=== PATIENT | male | born 1950 | race Hispanic/Latino ===

== ENCOUNTER 2017-07-31 20:38 | Emergency (ER) | payer OTHER, MEDICARE, BC ==
[2017-07-31 21:23] LABS: #Basophils 0.1 thou/uL (0.0-0.2); #Eosinphils 0.1 thou/uL (0.0-0.7); #Lymphocytes 1.4 thou/uL (1.20-3.40); #Monocytes 0.5 thou/uL (0.11-0.59); #Neutrophils 3.9 thou/uL (1.40-6.50); %Basophils 0.9 % (0.0-1.0); %Lymphocytes 23.6 % (21.0-51.0); %Monocytes 7.9 % (0.0-10.0); %Neutrophils 65.6 % (42.0-75.0); Hemoglobin 14.6 g/dL (14.0-18.0); Mean Corpuscular Hemoglobin 32.6 pg (27.0-31.0); Mean Platelet Volume 8.4 fL (7.4-10.4); Platelet Count 184 thou/uL (130-400); RBC Distribution Width 12.4 % (11.5-14.5); Red Blood Cell (RBC) Count 4.49 mill/uL (4.70-6.10)
[2017-07-31 21:45] LABS: ALT (SGPT) 18 U/L (8-55); AST (SGOT) 19 U/L (5-34); Albumin 4.1 g/dL (3.4-4.8); Alkaline Phosphatase 109 U/L (40-150); Anion Gap 15 mmol/L (10-20); BUN (Urea Nitrogen) 13 mg/dL (8.4-25.7); Bilirubin, Total 0.8 mg/dL (0.2-1.2); Calc. Creatinine Clearance 0 mL/min (70-130); Calcium 10.3 mg/dL (7.8-10.44); Carbon Dioxide 22 mmol/L (23-31); Chloride 100 mmol/L (98-107); Estimated GFR-MDRD 78; Globulin 3.5 g/dL (2.4-3.5); Glucose 327 mg/dL (80-115); Potassium 4.1 mmol/L (3.5-5.1); Protein, Total 7.6 g/dL (5.8-8.1); Sodium 133 mmol/L (136-145)
--- NOTE | 2017-07-31 21:51 | RAD ---
RIGHT HAND: 07/31/17 Three views. HISTORY: Pain in hand. FINDINGS/IMPRESSION: There is a flexion deformity at the PIP joint of the fifth digit. There are degenerative changes at t he PIP joints. Mild degenerative change at the first MCP joint. No acute fracture identified. POS: [facility]
--- NOTE | 2017-07-31 21:53 | CT ---
CT CERVICAL SPINE: 07/31/17 Multiple axial tomograms obtained through the cervical spine with multiplanar reconstruction. HISTORY: Fall with injury to neck. Cervical vertebrae maintain height and alignment. No evidence of fracture identified. IMPRESSION: No evidence of fracture. POS: [facility]
--- NOTE | 2017-07-31 21:59 | CT ---
CT HEAD WITHOUT CONTRAST: 07/31/17 Multiple axial tomograms obtained through the head without IV enhancement. HISTORY: Fall with injury to head. Mild cortical volume loss. Moderate chronic ischemic white matter change. 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 No hemorrhage. No mass. No acute cortical infarct. Sinuses and masto ids are well aerated. IMPRESSION: There are chronic changes as described. No acute process. POS: [facility]
--- NOTE | 2017-07-31 22:21 | RAD ---
FIFTH FINGER RIGHT HAND: 07/31/17 HISTORY: Post reduction. FINDINGS/IMPRESSION: The flexion deformity at the PIP joint fifth finger has been reduced. There are degenerative changes at this PIP joint. There is evidence of tiny fracture fragment along the radial side of the proximal phalanx at this joint. There is also soft tissue calcification seen dorsally which may represent smal l fracture fragments. There is soft tissue swelling. POS: [facility]
--- NOTE | 2017-09-08 12:36 | EKG ---
Test Reason : SYCOPE Blood Pressure : / mmHG Vent. Rate : 063 BPM Atrial Rate : 063 BPM P-R Int : 214 ms QRS Dur : 100 ms QT Int : 430 ms P-R-T Axes : 051 -39 059 degrees QTc Int : 440 ms Sinus rhythm with 1st degree A-V block Left axis deviation Abnormal ECG Confirmed by ANGELA EL, PAUL ([id number]), map editor SARAH CADET ([id number]) on 09/08/2017 12:35:48 PM Referred By: KENDALL Confirmed By:PAUL MILLER MD
== END 2017-07-31 23:35 | disposition home or self-care (01) ==
LOC: ERS 20:38
DX: S09.90XA Unspecified injury of head, initial encounter (principal); S62.616A Displaced fracture of proximal phalanx of right little finger, initial encounter for closed fracture; S16.1XXA Strain of muscle, fascia and tendon at neck level, initial encounter; E11.22 Type 2 diabetes mellitus with diabetic chronic kidney disease; N18.6 End stage renal disease; W08.XXXA Fall from other furniture, initial encounter
CPT/HCPCS: 26742; 36415; 70450; 72125; 80053; 85025; 93005

== ENCOUNTER 2022-09-06 13:45 | Inpatient (IN) | payer MEDICARE, BC ==
[~2022-09-06 13:45] MED LIST: Iopamidol-370 76% 500 ML MDV (1 ML CHARGE) ONE
[2022-09-06] MEDS ORDERED: Cefepime 2 GM VIAL ONE (14:01)
[2022-09-06] MEDS ORDERED: Diltiazem 125 MG/25 ML SDV ONE ×2 (14:01→15:30)
[2022-09-06 14:20] LABS: #Lymphocytes 0.6 thou/uL (1.20-3.40); #Monocytes 0.5 thou/uL (0.11-0.59); #Neutrophils 3.8 thou/uL (1.40-6.50); %Basophils 0.1 % (0.0-1.0); %Lymphocytes 12.7 % (21.0-51.0); %Monocytes 10.5 % (0.0-10.0); %Neutrophils 76.7 % (42.0-75.0); Hemoglobin 14.2 g/dL (14.0-18.0); Mean Corpuscular Hemoglobin 31.7 pg (27.0-31.0); Platelet Count 138 10x3/uL (130-400); RBC Distribution Width 16.6 % (11.5-14.5); Red Blood Cell (RBC) Count 4.46 mill/uL (4.70-6.10)
[2022-09-06 14:21] LABS: Actual Bicarbonate (HCO3a) 21.6 mEq/L (22-28); Analyzer IN Cardio ER; Base Excess (BEa) -2.5 mEq/L (-2.0 to +3.0); CO2 Tension 35.6 mmHg (35.0-45.0); Calcium, Ionized (arterial) 1.27 mmol/L (1.12-1.30); Carboxyhemoglobin (COHb) 0.6 gm% (0.0-3.0); Hemoglobin (Hb) 14.4 g/dL (14.0-18.0); O2 Tension (PaO2), arterial 145.1 mmHg (> 70.0); Potassium - ABG Lab 4.26 mmol/L (3.70-5.30)
[2022-09-06 14:26] LABS: Puncture Site RRA
[2022-09-06] MEDS ORDERED: VANCOMYCIN 2 GRAM/500 ML BAG 2 GM in Premix Bag 1 BAG IVPB SCH (14:30)
[2022-09-06 14:35] LABS: INR-International Normal Ratio 1.5; PTT 26.9 sec (22.9-36.1); Prothrombin Time 18.4 sec (12.0-14.7)
[2022-09-06 15:12] LABS: SARS-CoV-2 NAA Rapid Test Not Detected (NotDetected)
[2022-09-06 15:28] LABS: Albumin 2.6 g/dL (3.4-4.8)
[2022-09-06 15:29] LABS: Chloride 114 mmol/L (98-107); Potassium 3.4 mmol/L (3.5-5.1); Sodium 145 mmol/L (136-145)
[2022-09-06 15:30] LABS: Calcium 7.8 mg/dL (7.8-10.44); Glucose 355 mg/dL (80-115)
[2022-09-06] MEDS ORDERED: Furosemide 40 MG/4 ML VIAL ONE ×2 (15:30→20:04)
[2022-09-06 15:31] LABS: Globulin 2.9 g/dL (2.4-3.5); Protein, Total 5.5 g/dL (5.8-8.1)
[2022-09-06 15:32] LABS: Anion Gap 19 mmol/L (10-20); Bilirubin, Total 1.1 mg/dL (0.2-1.2); Carbon Dioxide 15 mmol/L (23-31)
[2022-09-06 15:33] LABS: Alkaline Phosphatase 55 U/L (40-110)
[2022-09-06 15:34] LABS: Calc. Creatinine Clearance 0 mL/min (70-130); Estimated GFR 91
[2022-09-06 15:35] LABS: BUN (Urea Nitrogen) 15 mg/dL (8.4-25.7)
[2022-09-06 15:36] LABS: ALT (SGPT) 31 U/L (8-55); AST (SGOT) 53 U/L (5-34)
[2022-09-06 15:49] LABS: Acetaminophen Less than 10.0 mcg/mL (10.0-30.0); Alcohol Less than 10 mg/dL (Less than 10); Salicylate Less than 8.0 mg/dL (15.0-30.0)
[2022-09-06 16:04] LABS: Bacteria/HPF None Seen HPF (None Seen); Bilirubin 1+ (Negative); Blood, Urine Trace (Negative); Clarity Clear (Clear); Glucose, Urine (Dipstick) Greater than 1000 mg/dL (Negative); Ketone, Urine 40 mg/dL (Negative); Leukocyte Negative Leu/uL (Negative); Nitrite Negative (Negative); Protein, Urine (Dipstick) 100 mg/dL (Neg-Trace); RBC/HPF 0-3 HPF (0-3); Specific Gravity, Urine 1.027 (1.002-1.036); Squamous Epithelial None Seen HPF (0-3); WBC/HPF 0-3 HPF (0-3); pH, Urine 5.5 (5.0-9.0)
[2022-09-06 16:11] LABS: Amphetamine Not Detected (NotDetected); Barbiturates Screen Not Detected (NotDetected); Benzodiazepine Screen Not Detected (NotDetected); Cocaine Metabolite Screen Not Detected (NotDetected); Methadone Not Detected (NotDetected); Methamphetamine Not Detected (NotDetected); Opiate Screen Not Detected (NotDetected); Oxycodone Screen Not Detected (NotDetected); Phencyclidine (PCP) Not Detected (NotDetected); THC/Cannabinoid Screen Not Detected (NotDetected); Tricyclic Screen Not Detected (NotDetected)
[2022-09-06 16:16] LABS: CKMB 1.1 ng/mL (0-6.6)
[2022-09-06] MEDS ORDERED: Magnesium 2 GM/50 ML BAG (IN WATER) ONE (16:58)
[2022-09-06] MEDS ORDERED: Amiodarone 150 MG/3 ML VIAL ONE (16:58)
[2022-09-06] MEDS ORDERED: Senokot S 8.6-50 MG TAB PO PRN (17:49)
[2022-09-06] MEDS ORDERED: Acetaminophen 325 MG TAB PO PRN (17:49)
[2022-09-06] MEDS ORDERED: Guaifenesin DM 100-10/5 ML UDCUP PO PRN (17:49)
[2022-09-06] MEDS ORDERED: Ondansetron PF 4 MG/2 ML Vial IVP PRN (17:49)
[2022-09-06 18:32] LABS: Lactic Acid 4.5 mmol/L (0.5-2.2)
[2022-09-06] MEDS ORDERED: Dextrose 5 %-0.45 % NaCl 1,000 ML IV PRN (18:32)
[2022-09-06] MEDS ORDERED: Sodium Chloride 0.9% 1,000 ML IV PRN ×4 (18:32)
[2022-09-06] MEDS ORDERED: Electrolyte Replacement Protocol 1 EACH IVPB SCH (18:32)
[2022-09-06] MEDS ORDERED: NS 0.9% w/ 20 MEQ KCL 1,000 ML IV PRN ×2 (18:32)
[2022-09-06] MEDS ORDERED: D5 1/2 NS w/20 mEq KCL 1,000 ML IV PRN (18:32)
[2022-09-06] MEDS ORDERED: Dextrose 50% Abboject 50 ML SYRINGE SLOW IVP PRN (18:32)
[2022-09-06] MEDS ORDERED: Dextrose 5% in Water 1,000 ML IV PRN (18:34)
[2022-09-06] MEDS ORDERED: HumaLOG 300 UNITS/3 ML VIAL SC PRN (18:34)
[2022-09-06] MEDS ORDERED: Magnesium Sulfate 4 GM in Sodium Chloride 0.9% 250 ML 250 ML IVPB SCH (18:45)
[2022-09-06] MEDS ORDERED: Magnesium Sulfate In Water 4 GM in Premix Bag 1 BAG IVPB SCH (18:45)
[2022-09-06] MEDS ORDERED: HUMULIN R 100 UNITS in Sodium Chloride 0.9% 100 ML IVPB SCH (18:45)
[2022-09-06 20:07] LABS: Anion Gap 24 mmol/L (10-20); BUN (Urea Nitrogen) 18 mg/dL (8.4-25.7); Calc. Creatinine Clearance 0 mL/min (70-130); Carbon Dioxide 20 mmol/L (23-31); Chloride 104 mmol/L (98-107); Estimated GFR 51; Glucose 503 mg/dL (80-115); Potassium 4.2 mmol/L (3.5-5.1); Sodium 144 mmol/L (136-145)
[2022-09-06] MEDS ORDERED: Famotidine/PF 20 mg/2ml Vial SLOW IVP SCH (21:00)
[2022-09-06] MEDS ORDERED: Aspirin 300 MG Suppository PR SCH (21:15)
[2022-09-06] MEDS: Diltiazem HCl 125 MG, Admixture Fee 1 EACH in Sodium Chloride 0.9% 100 ML IVPB SCH (21:30)
[2022-09-06 21:38] LABS: Phosphorus 2.7 mg/dL (2.3-4.7)
[2022-09-06] MEDS ORDERED: Digoxin 0.5 MG/2 ML AMP SLOW IVP SCH ×2 (22:00→23:00)
[2022-09-06 22:40] VITALS: BMI 31.1
[2022-09-06] MEDS ORDERED: NOREPINEPHRINE 8 MG/250 ML-D5W 250 ML IVPB SCH (22:45)
[2022-09-06] MEDS: Amiodarone 450 MG in Dextrose 5% in Water 250 ML IVPB SCH (23:45)
[2022-09-06 23:48] LABS: Lactic Acid 3.9 mmol/L (0.5-2.2)
[2022-09-06 23:51] LABS: Anion Gap 18 mmol/L (10-20); BUN (Urea Nitrogen) 18 mg/dL (8.4-25.7); Calc. Creatinine Clearance 54 mL/min (70-130); Calcium 9.7 mg/dL (7.8-10.44); Carbon Dioxide 24 mmol/L (23-31); Chloride 104 mmol/L (98-107); Estimated GFR 49; Potassium 3.3 mmol/L (3.5-5.1); Sodium 143 mmol/L (136-145)
[2022-09-06 23:52] LABS: CK (CPK) 63 U/L (30-200); Magnesium 1.5 mg/dL (1.6-2.6)
[2022-09-06 23:59] LABS: Glucose 441 mg/dL (80-115); Troponin I 0.296 ng/mL (< 0.028)
[2022-09-07] MEDS ORDERED: NOREPINEPHRINE 8 MG/250 ML-D5W 250 ML IVPB SCH (00:35)
[2022-09-07] MEDS ORDERED: Magnesium 2 GM/50 ML(in water) 2 GM in Premix Bag 1 BAG IVPB SCH ×2 (00:45→06:00)
[2022-09-07] MEDS ORDERED: Cefepime 2 GM in Sodium Chloride 0.9% 100 ML IVPB SCH (02:00)
[2022-09-07] MEDS ORDERED: NPH, Human Insulin Isophane 300 UNIT/3 ML VIAL SC SCH (02:30)
[2022-09-07] MEDS: Potassium Chloride 20 MEQ in Premix Bag 1 BAG IVPB SCH ×2 (02:31→04:08)
[2022-09-07] MEDS ORDERED: Insulin NPH Human Isophane 100 UNIT/ML (10 ML VIAL) SC SCH (02:45)
[2022-09-07] MEDS: HumaLOG 300 UNITS/3 ML VIAL SC PRN ×4 (03:02→20:26)
[2022-09-07] MEDS ORDERED: Phenylephrine 40 MG in Sodium Chloride 0.9% 250 ML 250 ML IVPB SCH (03:15)
[2022-09-07] MEDS: Phenylephrine 40 MG/NS 250 ML 40 MG in Premix Bag 1 BAG IVPB SCH ×2 (04:08→12:22)
[2022-09-07 05:05] LABS: #Lymphocytes 0.6 thou/uL (1.20-3.40); #Monocytes 0.7 thou/uL (0.11-0.59); %Basophils 0.1 % (0.0-1.0); %Eosinophils 0.1 % (0.0-10.0); %Lymphocytes 7.6 % (21.0-51.0); %Neutrophils 82.1 % (42.0-75.0); Mean Corpuscular HGB CONC 30.9 g/dL (32.0-36.0); Mean Corpuscular Hemoglobin 31.3 pg (27.0-31.0); Mean Platelet Volume 9.6 fL (7.4-10.4); Platelet Count 136 10x3/uL (130-400); RBC Distribution Width 16.4 % (11.5-14.5); Red Blood Cell (RBC) Count 4.47 mill/uL (4.70-6.10); White Blood Cell (WBC) Count 7.3 10x3/uL (4.8-10.8)
[2022-09-07 05:11] LABS: Hemoglobin A1c 7.7 % (4.0-6.0)
[2022-09-07 05:25] LABS: Lactic Acid 3.1 mmol/L (0.5-2.2)
[2022-09-07 05:30] LABS: Anion Gap 13 mmol/L (10-20); BUN (Urea Nitrogen) 18 mg/dL (8.4-25.7); Calc. Creatinine Clearance 63 mL/min (70-130); Carbon Dioxide 29 mmol/L (23-31); Chloride 106 mmol/L (98-107); Estimated GFR 59; Glucose 234 mg/dL (80-115); Magnesium 1.9 mg/dL (1.6-2.6); Potassium 3.4 mmol/L (3.5-5.1); Sodium 145 mmol/L (136-145)
[2022-09-07] MEDS: Diltiazem HCl 125 MG, Admixture Fee 1 EACH in Sodium Chloride 0.9% 100 ML IVPB SCH (05:31)
[2022-09-07] MEDS: Furosemide 40 MG/4 ML VIAL SLOW IVP SCH ×2 (05:31→14:34)
[2022-09-07 05:35] LABS: Phosphorus Less than 1.0 mg/dL (2.3-4.7)
[2022-09-07] MEDS ORDERED: Digoxin 0.5 MG/2 ML AMP SLOW IVP SCH ×2 (05:45→09:45)
[2022-09-07] MEDS ORDERED: Potassium Phosphate 30 MMOL in Sodium Chloride 0.9% 250 ML 250 ML IVPB SCH (06:30)
[2022-09-07] MEDS: Pantoprazole 40 MG VIAL IVP SCH (08:06)
[2022-09-07] MEDS: Amiodarone 450 MG in Dextrose 5% in Water 250 ML IVPB SCH (08:47)
[2022-09-07] MEDS ORDERED: Diltiazem HCl 125 MG, Admixture Fee 1 EACH in Sodium Chloride 0.9% 100 ML IVPB SCH ×2 (09:44→10:30)
[2022-09-07] MEDS: Ipratropium Bromide 2.5 ml Neb NEB SCH ×4 (11:35→22:44)
[2022-09-07] MEDS ORDERED: Furosemide 40 MG/4 ML VIAL SLOW IVP SCH (12:00)
[2022-09-07] MEDS ORDERED: Heparin 10,000 UNITS/ 10 ML VIAL SLOW IVP SCH (12:00)
[2022-09-07] MEDS ORDERED: Heparin 25,000 units/D5W 500 ML IV SCH (12:00)
[2022-09-07 13:41] LABS: Lactic Acid 1.4 mmol/L (0.5-2.2)
[2022-09-07] MEDS ORDERED: Cefepime 1 GM in Sodium Chloride 0.9% 100 ML IVPB SCH (14:00)
[2022-09-07 14:03] LABS: Phosphorus 3.6 mg/dL (2.3-4.7)
[2022-09-07 17:47] LABS: Actual Bicarbonate (HCO3v) 37 mEq/L (22-28); Base Excess 11.7 mEq/L (-2.0 to +3.0); Calcium, Ionized (venous) 1.24 mmol/L (1.16-1.32); Chloride (VBG) 99 mmol/L (98-106); Hemoglobin (Hb) 15.8 g/dL (12.6-17.4); Potassium (VBG) 3.95 mmol/L (3.70-5.30); Sodium 143.5 mmol/L (133-146); pH (venous) 7.48 (7.32-7.43)
[2022-09-07] MEDS ORDERED: Vancomycin 1.5 GRAM/300 ML BAG 1.5 GM in Premix Bag 1 BAG IVPB SCH (18:00)
[2022-09-08] MEDS: HumaLOG 300 UNITS/3 ML VIAL SC PRN ×7 (00:54→20:44)
[2022-09-08] MEDS: Amiodarone 450 MG in Dextrose 5% in Water 250 ML IVPB SCH ×2 (01:12→14:45)
[2022-09-08 01:17] LABS: PTT 140.9 sec (22.9-36.1)
[2022-09-08] MEDS: Ipratropium Bromide 2.5 ml Neb NEB SCH ×6 (02:43→22:09)
[2022-09-08 04:53] LABS: #Lymphocytes 0.6 thou/uL (1.20-3.40); #Monocytes 0.6 thou/uL (0.11-0.59); %Eosinophils 0.5 % (0.0-10.0); %Lymphocytes 8.8 % (21.0-51.0); %Monocytes 9.6 % (0.0-10.0); Hemoglobin 15.3 g/dL (14.0-18.0); Mean Corpuscular HGB CONC 31.1 g/dL (32.0-36.0); Mean Corpuscular Hemoglobin 31.7 pg (27.0-31.0); Mean Platelet Volume 9.5 fL (7.4-10.4); Platelet Count 117 10x3/uL (130-400); RBC Distribution Width 16.4 % (11.5-14.5); Red Blood Cell (RBC) Count 4.81 mill/uL (4.70-6.10); White Blood Cell (WBC) Count 6.2 10x3/uL (4.8-10.8)
[2022-09-08 05:08] LABS: Digoxin 1.39 ng/mL (0.8-2.0)
[2022-09-08 05:10] LABS: Magnesium 1.4 mg/dL (1.6-2.6)
[2022-09-08 05:14] LABS: Anion Gap 12 mmol/L (10-20); BUN (Urea Nitrogen) 14 mg/dL (8.4-25.7); Calc. Creatinine Clearance 88 mL/min (70-130); Calcium 9.8 mg/dL (7.8-10.44); Carbon Dioxide 35 mmol/L (23-31); Chloride 100 mmol/L (98-107); Estimated GFR 84; Glucose 168 mg/dL (80-115); Phosphorus 2.2 mg/dL (2.3-4.7); Potassium 3.7 mmol/L (3.5-5.1); Sodium 143 mmol/L (136-145)
[2022-09-08 05:15] LABS: Critical Call Chem Troponin I RESULT DECREASING; Troponin I 0.357 ng/mL (< 0.028)
[2022-09-08] MEDS ORDERED: Magnesium Sulfate 4 GM in Sodium Chloride 0.9% 250 ML 250 ML IVPB SCH (06:15)
[2022-09-08] MEDS ORDERED: Magnesium Sulfate In Water 4 GM in Premix Bag 1 BAG IVPB SCH (08:00)
[2022-09-08] MEDS ORDERED: Potassium Phosphate 30 MMOL in Sodium Chloride 0.9% 250 ML 250 ML IVPB SCH (08:00)
[2022-09-08] MEDS ORDERED: Tacrolimus 1 MG CAP PO SCH (09:00)
[2022-09-08] MEDS: Potassium Chloride 20 MEQ in Premix Bag 1 BAG IVPB SCH ×2 (09:02→10:22)
[2022-09-08] MEDS: Pantoprazole 40 MG VIAL IVP SCH (09:02)
[2022-09-08] MEDS: Mycophenolate DR 180 MG TAB PO SCH ×2 (09:12→20:43)
[2022-09-08] MEDS: Tacrolimus 0.5 MG CAP PO SCH ×2 (09:30→20:43)
[2022-09-08] MEDS ORDERED: Digoxin 0.5 MG/2 ML AMP SLOW IVP SCH (10:00)
[2022-09-08] MEDS ORDERED: Apixaban 5 MG TAB PO SCH (10:30)
[2022-09-08] MEDS: Apixaban 5 MG TAB PO SCH (20:43)
[2022-09-09] MEDS: HumaLOG 300 UNITS/3 ML VIAL SC PRN ×4 (00:49→16:42)
[2022-09-09] MEDS: Ipratropium Bromide 2.5 ml Neb NEB SCH ×6 (01:55→21:59)
[2022-09-09] MEDS: Amiodarone 450 MG in Dextrose 5% in Water 250 ML IVPB SCH ×2 (03:28→17:58)
[2022-09-09 04:18] LABS: #Lymphocytes 0.7 thou/uL (1.20-3.40); #Monocytes 0.5 thou/uL (0.11-0.59); #Neutrophils 4.2 thou/uL (1.40-6.50); %Eosinophils 0.5 % (0.0-10.0); %Lymphocytes 13.2 % (21.0-51.0); %Monocytes 8.6 % (0.0-10.0); %Neutrophils 77.7 % (42.0-75.0); Hemoglobin 13.9 g/dL (14.0-18.0); Mean Corpuscular HGB CONC 31.2 g/dL (32.0-36.0); Mean Corpuscular Hemoglobin 31.6 pg (27.0-31.0); Mean Platelet Volume 10.4 fL (7.4-10.4); Platelet Count 109 10x3/uL (130-400); RBC Distribution Width 16.3 % (11.5-14.5); White Blood Cell (WBC) Count 5.4 10x3/uL (4.8-10.8)
[2022-09-09 04:37] LABS: Anion Gap 11 mmol/L (10-20); BUN (Urea Nitrogen) 17 mg/dL (8.4-25.7); Calc. Creatinine Clearance 89 mL/min (70-130); Calcium 9.4 mg/dL (7.8-10.44); Carbon Dioxide 35 mmol/L (23-31); Chloride 97 mmol/L (98-107); Estimated GFR 93; Glucose 306 mg/dL (80-115); Phosphorus 2.6 mg/dL (2.3-4.7); Potassium 3.6 mmol/L (3.5-5.1); Sodium 139 mmol/L (136-145)
[2022-09-09 04:39] LABS: Digoxin 1.48 ng/mL (0.8-2.0)
[2022-09-09] MEDS ORDERED: Magnesium 2 GM/50 ML(in water) 2 GM in Premix Bag 1 BAG IVPB SCH (08:00)
[2022-09-09] MEDS ORDERED: NPH, Human Insulin Isophane 300 UNIT/3 ML VIAL SC SCH (09:00)
[2022-09-09 09:28] LABS: Actual Bicarbonate (HCO3a) 37.8 mEq/L (22-28); Base Excess (BEa) 11.3 mEq/L (-2.0 to +3.0); CO2 Tension 56.4 mmHg (35.0-45.0); Calcium, Ionized (arterial) 1.28 mmol/L (1.12-1.30); Hemoglobin (Hb) 14.9 g/dL (14.0-18.0); O2 Tension (PaO2), arterial 66.8 mmHg (> 70.0); Potassium - ABG Lab 3.65 mmol/L (3.70-5.30); pH, Arterial 7.44 (7.35-7.45)
[2022-09-09 09:30] LABS: Puncture Site RRA
[2022-09-09] MEDS: Apixaban 5 MG TAB PO SCH ×2 (10:59→20:00)
[2022-09-09] MEDS: Pantoprazole 40 MG VIAL IVP SCH (10:59)
[2022-09-09] MEDS ORDERED: Insulin NPH Human Isophane 100 UNIT/ML (10 ML VIAL) SC SCH (11:15)
[2022-09-09] MEDS: Insulin NPH Human Isophane 100 UNIT/ML (10 ML VIAL) SC SCH ×2 (11:15→20:01)
[2022-09-09] MEDS: Tacrolimus 0.5 MG CAP PO SCH (11:35)
[2022-09-09] MEDS: Tacrolimus 0.5 MG CAP PER TUBE SCH ×2 (11:41→20:01)
[2022-09-09] MEDS: Mycophenolate DR 180 MG TAB PO SCH (12:50)
[2022-09-10] MEDS: Ipratropium Bromide 2.5 ml Neb NEB SCH ×6 (02:09→22:19)
[2022-09-10 06:28] LABS: #Lymphocytes 0.7 thou/uL (1.20-3.40); #Monocytes 0.5 thou/uL (0.11-0.59); #Neutrophils 3.7 thou/uL (1.40-6.50); %Basophils 0.6 % (0.0-1.0); %Eosinophils 0.8 % (0.0-10.0); %Lymphocytes 14.2 % (21.0-51.0); %Monocytes 9.8 % (0.0-10.0); %Neutrophils 74.6 % (42.0-75.0); Hemoglobin 15.8 g/dL (14.0-18.0); Mean Corpuscular HGB CONC 29.6 g/dL (32.0-36.0); Mean Corpuscular Hemoglobin 30.5 pg (27.0-31.0); Mean Platelet Volume 10.7 fL (7.4-10.4); Platelet Count 107 10x3/uL (130-400); RBC Distribution Width 16.4 % (11.5-14.5); Red Blood Cell (RBC) Count 5.19 mill/uL (4.70-6.10)
[2022-09-10 06:40] LABS: Anion Gap 13 mmol/L (10-20); BUN (Urea Nitrogen) 13 mg/dL (8.4-25.7); Calc. Creatinine Clearance 123 mL/min (70-130); Calcium 9.7 mg/dL (7.8-10.44); Carbon Dioxide 30 mmol/L (23-31); Chloride 101 mmol/L (98-107); Estimated GFR 100; Glucose 133 mg/dL (80-115); Magnesium 1.8 mg/dL (1.6-2.6); Sodium 140 mmol/L (136-145)
[2022-09-10 06:41] LABS: Phosphorus 1.9 mg/dL (2.3-4.7)
[2022-09-10] MEDS ORDERED: Magnesium 2 GM/50 ML(in water) 2 GM in Premix Bag 1 BAG IVPB SCH (08:00)
[2022-09-10] MEDS: PHOS-NAK 1 PKT PACK PO SCH ×2 (10:15→12:50)
[2022-09-10] MEDS: Tacrolimus 0.5 MG CAP PER TUBE SCH ×2 (10:15→20:50)
[2022-09-10] MEDS: Amiodarone 450 MG in Dextrose 5% in Water 250 ML IVPB SCH (10:16)
[2022-09-10] MEDS: Apixaban 5 MG TAB PO SCH ×2 (10:16→20:50)
[2022-09-10] MEDS: Insulin NPH Human Isophane 100 UNIT/ML (10 ML VIAL) SC SCH ×2 (10:18→20:51)
[2022-09-10] MEDS: Pantoprazole 40 MG VIAL IVP SCH (10:18)
[2022-09-10] MEDS: Amiodarone 200 MG TAB PO SCH (21:42)
[2022-09-11] MEDS: Ipratropium Bromide 2.5 ml Neb NEB SCH ×5 (02:39→15:14)
[2022-09-11 07:17] LABS: Band 1 % (5-11); Hemoglobin 14.4 g/dL (14.0-18.0); Lymphocytes 15 % (21-51); MDiff Complete? YES; Mean Corpuscular HGB CONC 30.4 g/dL (32.0-36.0); Mean Corpuscular Hemoglobin 30.8 pg (27.0-31.0); Mean Platelet Volume 9.6 fL (7.4-10.4); Monocytes 14 % (0-10); Neutrophil 69 % (42-75); Platelet Count 124 10x3/uL (130-400); RBC Distribution Width 16.3 % (11.5-14.5); Reactive Lymphocytes 1 % (0-10); Red Blood Cell (RBC) Count 4.67 mill/uL (4.70-6.10); White Blood Cell (WBC) Count 6.2 10x3/uL (4.8-10.8)
[2022-09-11 07:26] LABS: ALT (SGPT) 20 U/L (8-55); AST (SGOT) 27 U/L (5-34); Albumin 2.4 g/dL (3.4-4.8); Alkaline Phosphatase 59 U/L (40-110); Anion Gap 10 mmol/L (10-20); BUN (Urea Nitrogen) 11 mg/dL (8.4-25.7); Calc. Creatinine Clearance 121 mL/min (70-130); Calcium 9.7 mg/dL (7.8-10.44); Carbon Dioxide 33 mmol/L (23-31); Chloride 100 mmol/L (98-107); Estimated GFR 100; Globulin 3.4 g/dL (2.4-3.5); Glucose 118 mg/dL (80-115); Phosphorus 2.7 mg/dL (2.3-4.7); Potassium 3.4 mmol/L (3.5-5.1); Protein, Total 5.8 g/dL (5.8-8.1); Sodium 140 mmol/L (136-145)
[2022-09-11 07:37] LABS: Magnesium 1.9 mg/dL (1.6-2.6)
[2022-09-11] MEDS ORDERED: Magnesium 2 GM/50 ML(in water) 2 GM in Premix Bag 1 BAG IVPB SCH (08:15)
[2022-09-11] MEDS: Apixaban 5 MG TAB PO SCH ×2 (09:39→23:40)
[2022-09-11] MEDS: Pantoprazole 40 MG VIAL IVP SCH (09:39)
[2022-09-11] MEDS: Amiodarone 200 MG TAB PO SCH ×3 (09:39→23:40)
[2022-09-11] MEDS: Potassium Chloride 20 MEQ in Premix Bag 1 BAG IVPB SCH ×2 (09:39→12:29)
[2022-09-11] MEDS: Tacrolimus 0.5 MG CAP PER TUBE SCH ×2 (09:47→23:39)
[2022-09-11] MEDS: MYCOPHENOLATE MOFETIL 200 MG/ML PO SCH ×2 (12:30→23:39)
[2022-09-11] MEDS ORDERED: Ipratropium 200 Puff Oral Inhaler INH SCH (14:30)
[2022-09-11] MEDS: Ipratropium 200 Puff Oral Inhaler INH SCH ×3 (15:14→22:29)
[2022-09-11] MEDS: Insulin NPH Human Isophane 100 UNIT/ML (10 ML VIAL) SC SCH (16:35)
[2022-09-11 20:47] LABS: Potassium 4.3 mmol/L (3.5-5.1)
[2022-09-12] MEDS: Ipratropium 200 Puff Oral Inhaler INH SCH ×6 (02:21→22:20)
[2022-09-12 07:02] LABS: Hemoglobin 15.3 g/dL (14.0-18.0); Mean Corpuscular HGB CONC 30.4 g/dL (32.0-36.0); Mean Corpuscular Hemoglobin 30.6 pg (27.0-31.0); Mean Platelet Volume 9.1 fL (7.4-10.4); Platelet Count 128 10x3/uL (130-400); RBC Distribution Width 15.8 % (11.5-14.5); Red Blood Cell (RBC) Count 5.01 mill/uL (4.70-6.10); White Blood Cell (WBC) Count 4.9 10x3/uL (4.8-10.8)
[2022-09-12 07:14] LABS: Anion Gap 13 mmol/L (10-20); BUN (Urea Nitrogen) 12 mg/dL (8.4-25.7); Calc. Creatinine Clearance 121 mL/min (70-130); Calcium 9.6 mg/dL (7.8-10.44); Carbon Dioxide 31 mmol/L (23-31); Chloride 98 mmol/L (98-107); Estimated GFR 100; Glucose 142 mg/dL (80-115); Sodium 138 mmol/L (136-145)
[2022-09-12] MEDS: Cinacalcet HCl 30 MG TAB PO SCH (08:11)
[2022-09-12] MEDS: Tacrolimus 0.5 MG CAP PER TUBE SCH ×2 (08:12→23:41)
[2022-09-12] MEDS: Apixaban 5 MG TAB PO SCH ×2 (08:12→23:40)
[2022-09-12] MEDS: Magnesium Oxide 400 MG TAB PO SCH ×2 (08:12→23:49)
[2022-09-12] MEDS: Amiodarone 200 MG TAB PO SCH ×3 (08:12→23:40)
[2022-09-12] MEDS: MYCOPHENOLATE MOFETIL 200 MG/ML PO SCH ×2 (08:13→23:42)
[2022-09-12] MEDS: Pantoprazole 40 MG VIAL IVP SCH (08:13)
[2022-09-12 10:58] LABS: Band 4 % (5-11); Eosinophils 1 % (0-10); Lymphocytes 25 % (21-51); MDiff Complete? YES; Monocytes 13 % (0-10); Neutrophil 56 % (42-75); Platelet Morphology Comment Appears Decreased; RBC Morphology Normal; Reactive Lymphocytes 1 % (0-10)
[2022-09-12] MEDS ORDERED: Furosemide 20 MG/2 ML VIAL SLOW IVP SCH (14:00)
[2022-09-12] MEDS ORDERED: Potassium Chloride 20 MEQ TAB PO SCH (16:00)
[2022-09-12 17:39] LABS: Tacrolimus 7.3 ng/mL (2.0-20.0)
[2022-09-12] MEDS: Carvedilol 3.125 MG TAB PO SCH (17:44)
[2022-09-13] MEDS: Ipratropium 200 Puff Oral Inhaler INH SCH ×4 (02:34→15:18)
[2022-09-13 04:16] LABS: Anion Gap 16 mmol/L (10-20); BUN (Urea Nitrogen) 16 mg/dL (8.4-25.7); Calc. Creatinine Clearance 111 mL/min (70-130); Calcium 9.4 mg/dL (7.8-10.44); Carbon Dioxide 23 mmol/L (23-31); Chloride 97 mmol/L (98-107); Estimated GFR 98; Glucose 240 mg/dL (80-115); Sodium 131 mmol/L (136-145)
[2022-09-13] MEDS: Pantoprazole 40 MG VIAL IVP SCH (10:24)
[2022-09-13] MEDS: Amiodarone 200 MG TAB PO SCH ×3 (10:24→21:29)
[2022-09-13] MEDS: Cinacalcet HCl 30 MG TAB PO SCH (10:24)
[2022-09-13] MEDS: Apixaban 5 MG TAB PO SCH ×2 (10:25→21:29)
[2022-09-13] MEDS: Magnesium Oxide 400 MG TAB PO SCH ×2 (10:25→21:29)
[2022-09-13] MEDS: Tacrolimus 0.5 MG CAP PER TUBE SCH ×2 (10:26→21:29)
[2022-09-13] MEDS: MYCOPHENOLATE MOFETIL 200 MG/ML PO SCH ×2 (10:27→21:29)
[2022-09-13] MEDS: Carvedilol 3.125 MG TAB PO SCH ×3 (10:27→17:51)
[2022-09-13] MEDS ORDERED: Furosemide 20 MG/2 ML VIAL SLOW IVP SCH (13:30)
[2022-09-13] MEDS: HumaLOG 300 UNITS/3 ML VIAL SC PRN (14:56)
[2022-09-13] MEDS ORDERED: Ipratropium 200 Puff Oral Inhaler INH PRN (15:43)
[2022-09-14] MEDS: HumaLOG 300 UNITS/3 ML VIAL SC PRN ×4 (00:07→16:34)
[2022-09-14 03:51] LABS: #Eosinphils 0.1 thou/uL (0.0-0.7); #Monocytes 0.9 thou/uL (0.11-0.59); #Neutrophils 5.2 thou/uL (1.40-6.50); %Basophils 0.1 % (0.0-1.0); %Eosinophils 0.8 % (0.0-10.0); %Lymphocytes 13.5 % (21.0-51.0); %Monocytes 12.2 % (0.0-10.0); %Neutrophils 73.3 % (42.0-75.0); Hemoglobin 14.5 g/dL (14.0-18.0); Mean Corpuscular Hemoglobin 31.8 pg (27.0-31.0); Mean Corpuscular Volume 99.2 fl (78.0-98.0); Mean Platelet Volume 9.9 fL (7.4-10.4); Platelet Count 149 10x3/uL (130-400); RBC Distribution Width 15.9 % (11.5-14.5); Red Blood Cell (RBC) Count 4.57 mill/uL (4.70-6.10); White Blood Cell (WBC) Count 7.1 10x3/uL (4.8-10.8)
[2022-09-14 04:16] LABS: Anion Gap 11 mmol/L (10-20); BUN (Urea Nitrogen) 15 mg/dL (8.4-25.7); Calc. Creatinine Clearance 98 mL/min (70-130); Calcium 9.5 mg/dL (7.8-10.44); Carbon Dioxide 34 mmol/L (23-31); Chloride 93 mmol/L (98-107); Estimated GFR 94; Glucose 272 mg/dL (80-115); Magnesium 1.1 mg/dL (1.6-2.6); Sodium 134 mmol/L (136-145)
[2022-09-14] MEDS ORDERED: Magnesium Sulfate In Water 4 GM in Premix Bag 1 BAG IVPB SCH (05:15)
[2022-09-14] MEDS ORDERED: Magnesium Sulfate In Water 4 GM in Sodium Chloride 0.9% 250 ML 250 ML IVPB SCH (05:15)
[2022-09-14] MEDS: Furosemide 20 MG/2 ML VIAL SLOW IVP SCH ×2 (05:35→13:24)
[2022-09-14] MEDS: Magnesium Oxide 400 MG TAB PO SCH ×2 (09:13→22:54)
[2022-09-14] MEDS: Cinacalcet HCl 30 MG TAB PO SCH (09:13)
[2022-09-14] MEDS: Carvedilol 3.125 MG TAB PO SCH ×2 (09:13→16:33)
[2022-09-14] MEDS: Amiodarone 200 MG TAB PO SCH ×3 (09:14→22:54)
[2022-09-14] MEDS: Apixaban 5 MG TAB PO SCH ×2 (09:14→22:54)
[2022-09-14] MEDS: Pantoprazole 40 MG VIAL IVP SCH (09:14)
[2022-09-14] MEDS: Tacrolimus 0.5 MG CAP PER TUBE SCH ×2 (09:29→22:54)
[2022-09-14] MEDS: MYCOPHENOLATE MOFETIL 200 MG/ML PO SCH ×2 (09:29→22:54)
[2022-09-14 09:42] LABS: Phosphorus 1.5 mg/dL (2.3-4.7)
[2022-09-14] MEDS ORDERED: NPH, Human Insulin Isophane 300 UNIT/3 ML VIAL SC SCH (11:00)
[2022-09-14 12:53] LABS: Syphilis Antibody Nonreactive (Nonreactive); Syphilis Antibody Index 0.61 S/CO (<1.00 Non-Reactive)
[2022-09-15 07:47] LABS: #Lymphocytes 1.2 thou/uL (1.20-3.40); #Monocytes 0.9 thou/uL (0.11-0.59); %Basophils 0.5 % (0.0-1.0); %Eosinophils 0.2 % (0.0-10.0); %Lymphocytes 11.4 % (21.0-51.0); %Monocytes 9.1 % (0.0-10.0); %Neutrophils 78.8 % (42.0-75.0); Mean Corpuscular HGB CONC 32.2 g/dL (32.0-36.0); Mean Corpuscular Hemoglobin 31.7 pg (27.0-31.0); Mean Corpuscular Volume 98.6 fl (78.0-98.0); Mean Platelet Volume 9.5 fL (7.4-10.4); Platelet Count 175 10x3/uL (130-400); RBC Distribution Width 15.9 % (11.5-14.5); Red Blood Cell (RBC) Count 4.42 mill/uL (4.70-6.10); White Blood Cell (WBC) Count 10.2 10x3/uL (4.8-10.8)
[2022-09-15] MEDS: Furosemide 20 MG/2 ML VIAL SLOW IVP SCH ×2 (08:01→16:36)
[2022-09-15] MEDS: HumaLOG 300 UNITS/3 ML VIAL SC PRN ×3 (08:01→16:56)
[2022-09-15 08:21] LABS: Anion Gap 15 mmol/L (10-20); BUN (Urea Nitrogen) 15 mg/dL (8.4-25.7); Calc. Creatinine Clearance 94 mL/min (70-130); Calcium 9.4 mg/dL (7.8-10.44); Carbon Dioxide 31 mmol/L (23-31); Chloride 90 mmol/L (98-107); Estimated GFR 93; Glucose 257 mg/dL (80-115); Magnesium 1.4 mg/dL (1.6-2.6); Phosphorus 2.4 mg/dL (2.3-4.7); Potassium 4.5 mmol/L (3.5-5.1); Sodium 131 mmol/L (136-145)
[2022-09-15] MEDS: Magnesium Oxide 400 MG TAB PO SCH ×2 (08:44→21:16)
[2022-09-15] MEDS: Pantoprazole 40 MG VIAL IVP SCH (08:44)
[2022-09-15] MEDS: Tacrolimus 0.5 MG CAP PER TUBE SCH ×2 (08:44→21:16)
[2022-09-15] MEDS: Cinacalcet HCl 30 MG TAB PO SCH (08:44)
[2022-09-15] MEDS: Amiodarone 200 MG TAB PO SCH ×3 (08:44→21:15)
[2022-09-15] MEDS: Carvedilol 3.125 MG TAB PO SCH ×2 (08:44→16:36)
[2022-09-15] MEDS: NPH, Human Insulin Isophane 300 UNIT/3 ML VIAL SC SCH (08:46)
[2022-09-15] MEDS ORDERED: Magnesium Sulfate In Water 4 GM in Premix Bag 1 BAG IVPB SCH (09:00)
[2022-09-15] MEDS: MYCOPHENOLATE MOFETIL 200 MG/ML PO SCH ×2 (09:02→21:16)
[2022-09-15 12:48] LABS: CSF Source CSF; Clarity Clear (Clear); Tube # 4
[2022-09-15 12:49] LABS: CSF RBC Count - Manual 2 /cu.mm (None Seen); CSF WBC/NonHematics Count-Man 2 /cu.mm (0-5)
[2022-09-15 14:41] LABS: CSF, Glucose 123 mg/dl (40-70); CSF, Protein 84 mg/dL (15-40)
[2022-09-16 01:37] LABS: Tacrolimus 8.8 ng/mL (2.0-20.0)
[2022-09-16 09:03] LABS: #Lymphocytes 0.9 thou/uL (1.20-3.40); #Monocytes 0.8 thou/uL (0.11-0.59); #Neutrophils 8.4 thou/uL (1.40-6.50); %Basophils 0.3 % (0.0-1.0); %Eosinophils 0.1 % (0.0-10.0); %Lymphocytes 8.8 % (21.0-51.0); %Monocytes 7.8 % (0.0-10.0); %Neutrophils 82.9 % (42.0-75.0); Mean Corpuscular HGB CONC 31.2 g/dL (32.0-36.0); Mean Corpuscular Hemoglobin 31.2 pg (27.0-31.0); Mean Platelet Volume 9.8 fL (7.4-10.4); Platelet Count 204 10x3/uL (130-400); Red Blood Cell (RBC) Count 4.49 mill/uL (4.70-6.10); White Blood Cell (WBC) Count 10.1 10x3/uL (4.8-10.8)
[2022-09-16] MEDS: Pantoprazole 40 MG VIAL IVP SCH (09:19)
[2022-09-16] MEDS: MYCOPHENOLATE MOFETIL 200 MG/ML PO SCH ×2 (09:20→22:25)
[2022-09-16] MEDS: Cinacalcet HCl 30 MG TAB PO SCH (09:20)
[2022-09-16] MEDS: Apixaban 5 MG TAB PO SCH ×2 (09:20→22:25)
[2022-09-16] MEDS: Carvedilol 3.125 MG TAB PO SCH ×2 (09:20→16:30)
[2022-09-16] MEDS: Magnesium Oxide 400 MG TAB PO SCH ×2 (09:20→22:25)
[2022-09-16] MEDS: Amiodarone 200 MG TAB PO SCH ×3 (09:20→22:25)
[2022-09-16] MEDS: Tacrolimus 0.5 MG CAP PER TUBE SCH ×2 (09:20→22:25)
[2022-09-16] MEDS: NPH, Human Insulin Isophane 300 UNIT/3 ML VIAL SC SCH (09:21)
[2022-09-16 09:22] LABS: ALT (SGPT) 15 U/L (8-55); AST (SGOT) 21 U/L (5-34); Albumin 2.6 g/dL (3.4-4.8); Alkaline Phosphatase 80 U/L (40-110); Anion Gap 15 mmol/L (10-20); BUN (Urea Nitrogen) 20 mg/dL (8.4-25.7); Bilirubin, Total 1.4 mg/dL (0.2-1.2); CRP (Inflammatory) 19.44 mg/dL (= or < 0.5); Calc. Creatinine Clearance 81 mL/min (70-130); Calcium 9.7 mg/dL (7.8-10.44); Carbon Dioxide 32 mmol/L (23-31); Chloride 90 mmol/L (98-107); Estimated GFR 81; Globulin 4.1 g/dL (2.4-3.5); Glucose 278 mg/dL (80-115); Magnesium 1.8 mg/dL (1.6-2.6); Potassium 4.6 mmol/L (3.5-5.1); Protein, Total 6.7 g/dL (5.8-8.1); Sodium 132 mmol/L (136-145)
[2022-09-16] MEDS: HumaLOG 300 UNITS/3 ML VIAL SC PRN ×3 (09:22→16:30)
[2022-09-16] MEDS ORDERED: Magnevist 469MG/ML 20 ML VIAL ONE (12:29)
[2022-09-16] MEDS ORDERED: Magnesium 2 GM/50 ML(in water) 2 GM in Premix Bag 1 BAG IVPB SCH (13:00)
[2022-09-16 23:07] LABS: CMV DNA-PCR Test Positive < 200 IU/mL (Negative)
[2022-09-17 04:43] LABS: ALT (SGPT) 13 U/L (8-55); AST (SGOT) 20 U/L (5-34); Albumin 2.8 g/dL (3.4-4.8); Alkaline Phosphatase 77 U/L (40-110); Anion Gap 13 mmol/L (10-20); BUN (Urea Nitrogen) 20 mg/dL (8.4-25.7); Bilirubin, Total 1.2 mg/dL (0.2-1.2); Calc. Creatinine Clearance 90 mL/min (70-130); Calcium 9.8 mg/dL (7.8-10.44); Carbon Dioxide 34 mmol/L (23-31); Chloride 90 mmol/L (98-107); Estimated GFR 92; Glucose 252 mg/dL (80-115); Magnesium 1.9 mg/dL (1.6-2.6); Potassium 4.4 mmol/L (3.5-5.1); Protein, Total 6.8 g/dL (5.8-8.1); Sodium 133 mmol/L (136-145)
[2022-09-17 04:52] LABS: #Lymphocytes 0.9 thou/uL (1.20-3.40); #Monocytes 0.8 thou/uL (0.11-0.59); #Neutrophils 7.4 thou/uL (1.40-6.50); %Basophils 0.1 % (0.0-1.0); %Eosinophils 0.3 % (0.0-10.0); %Lymphocytes 10.2 % (21.0-51.0); %Monocytes 8.4 % (0.0-10.0); Hemoglobin 13.8 g/dL (14.0-18.0); Mean Corpuscular HGB CONC 31.7 g/dL (32.0-36.0); Mean Corpuscular Hemoglobin 31.5 pg (27.0-31.0); Mean Corpuscular Volume 99.4 fl (78.0-98.0); Mean Platelet Volume 9.6 fL (7.4-10.4); Platelet Count 199 10x3/uL (130-400); RBC Distribution Width 15.9 % (11.5-14.5); Red Blood Cell (RBC) Count 4.37 mill/uL (4.70-6.10); White Blood Cell (WBC) Count 9.1 10x3/uL (4.8-10.8)
[2022-09-17] MEDS: HumaLOG 300 UNITS/3 ML VIAL SC PRN ×3 (05:31→12:25)
[2022-09-17] MEDS ORDERED: Magnesium 2 GM/50 ML(in water) 2 GM in Premix Bag 1 BAG IVPB SCH (08:00)
[2022-09-17] MEDS: Cinacalcet HCl 30 MG TAB PO SCH (09:03)
[2022-09-17] MEDS: Carvedilol 3.125 MG TAB PO SCH (09:03)
[2022-09-17] MEDS: Apixaban 5 MG TAB PO SCH (09:03)
[2022-09-17] MEDS: Amiodarone 200 MG TAB PO SCH ×2 (09:03→14:32)
[2022-09-17] MEDS: Pantoprazole 40 MG VIAL IVP SCH (09:03)
[2022-09-17] MEDS: Magnesium Oxide 400 MG TAB PO SCH (09:06)
[2022-09-17] MEDS: NPH, Human Insulin Isophane 300 UNIT/3 ML VIAL SC SCH (09:30)
[2022-09-17] MEDS: Tacrolimus 0.5 MG CAP PER TUBE SCH (10:01)
[2022-09-17] MEDS: MYCOPHENOLATE MOFETIL 200 MG/ML PO SCH (10:01)
[2022-09-17 13:06] VITALS: BP 149/79
[2022-09-17 14:39] VITALS: TEMP 98.3
[2022-09-18 13:12] LABS: West Nile Virus IgG Ab - CSF Positive (Negative); West Nile Virus IgM Ab - CSF Negative (Negative)
== END 2022-09-17 15:10 | disposition short-term general hospital (02) | DRG 280 ==
LOC: ERS 13:45 → CCU 17:08 → IMCU/EMU 09-11 16:50
PROVIDERS: ADMIT Internal Medicine; ATTEND Family Medicine
PROC: 5A09357 Assistance with Respiratory Ventilation, Less than 24 Consecutive Hours, Continuous Positive Airway Pressure (ICD-10-PCS; principal; 2022-09-06)
PROC: 3E033XZ Introduction of Vasopressor into Peripheral Vein, Percutaneous Approach (ICD-10-PCS; 2022-09-06)
PROC: 009U3ZX Drainage of Spinal Canal, Percutaneous Approach, Diagnostic (ICD-10-PCS; 2022-09-15)
PROC: B01B1ZZ Fluoroscopy of Spinal Cord using Low Osmolar Contrast (ICD-10-PCS; 2022-09-15)
DX: I48.11 Longstanding persistent atrial fibrillation (principal); Z66 Do not resuscitate; E11.22 Type 2 diabetes mellitus with diabetic chronic kidney disease; E11.10 Type 2 diabetes mellitus with ketoacidosis without coma; I21.A1 Myocardial infarction type 2; G93.41 Metabolic encephalopathy; J96.01 Acute respiratory failure with hypoxia; R57.8 Other shock; I50.43 Acute on chronic combined systolic (congestive) and diastolic (congestive) heart failure; N17.9 Acute kidney failure, unspecified; D84.81 Immunodeficiency due to conditions classified elsewhere; T86.19 Other complication of kidney transplant; D84.821 Immunodeficiency due to drugs; Z20.822 Contact with and (suspected) exposure to COVID-19; F32.9 Major depressive disorder, single episode, unspecified; N40.0 Benign prostatic hyperplasia without lower urinary tract symptoms; I25.10 Atherosclerotic heart disease of native coronary artery without angina pectoris; E83.42 Hypomagnesemia; E87.6 Hypokalemia; E78.5 Hyperlipidemia, unspecified; E83.39 Other disorders of phosphorus metabolism; E21.2 Other hyperparathyroidism; I08.3 Combined rheumatic disorders of mitral, aortic and tricuspid valves; I11.0 Hypertensive heart disease with heart failure; Y83.2 Surgical operation with anastomosis, bypass or graft as the cause of abnormal reaction of the patient, or of later complication, without mention of misadventure at the time of the procedure; T45.1X5A Adverse effect of antineoplastic and immunosuppressive drugs, initial encounter; Y83.0 Surgical operation with transplant of whole organ as the cause of abnormal reaction of the patient, or of later complication, without mention of misadventure at the time of the procedure; Z95.5 Presence of coronary angioplasty implant and graft; Z79.899 Other long term (current) drug therapy; Z79.82 Long term (current) use of aspirin; Z83.3 Family history of diabetes mellitus; Z88.8 Allergy status to other drugs, medicaments and biological substances
CPT/HCPCS: 36415; 36416; 36556; 36600; 51702; 62270; 70450; 70553; 71045; 71275; 76770; 80048; 80053; 80162; 80197; 80306; 80307; 81003; 81015; 82010; 82140; 82550; 82553; 82805; 82945; 83036; 83605; 83735; 83873; 83880; 84100; 84145; 84157; 84443; 84484; 85025; 85610; 85730; 86140; 86592; 86612; 86635; 86698; 86780; 86788; 86789; 86850; 86900; 86901; 87040; 87070; 87086; 87102; 87149; 87205; 87497; 87498; 87529; 87798; 87811; 87899; 89051; 93005; 93306; 94640; 94660; 95712; 95819; 95957; 96365; 96366; 96368; 96374; 96375; 96376; A9579; C9113; J0282; J0692; J1160; J1644; J1650; J1815; J1940; J3370; J3475; J3480; J3490; J7030; J7050; J7070; J7507; J7517; J7518; Q9967; S0028